=== PATIENT | male | born 1990 | race Two or more races ===

== ENCOUNTER 2024-04-04 09:52 | Emergency (ER) | payer MEDICAID ==
[~2024-04-04] VITALS: Ht 190.5 cm; Wt 120.9 kg
[2024-04-04 09:57] VITALS: BP 129/87; PULSE 67; RESP 16; O2SAT 99
[2024-04-04 11:05] VITALS: TEMP 97.7
== END 2024-04-04 11:18 | disposition home or self-care (01) ==
LOC: ER 09:53
DX: Z13.6 Encounter for screening for cardiovascular disorders (principal); R07.89 Other chest pain; Z88.2 Allergy status to sulfonamides; Z88.1 Allergy status to other antibiotic agents
CPT/HCPCS: 93005; 99283